=== PATIENT | female | born 1965 | race Caucasian/White ===

== ENCOUNTER 2017-01-24 08:43 | Day surgery (SDC) | payer OTHER ==
[~2017-01-24] VITALS: Ht 157.5 cm; Wt 103.2 kg
[~2017-01-24 08:43] MED LIST: ASPI81 PO; ENAL5 PO; HYDR25TA PO; ISOS10TA16 PO; METO25 PO; OMEP20 PO; SIMV-260 PO; SULF500P17
[2017-01-24] MEDS ORDERED: 0.9% SODIUM CHLORIDE 10 ML SYRINGE IVP ONE (09:07)
[2017-01-24 09:45] LABS: ANION GAP 10 mmol/L (8-16); CALCIUM, TOTAL 9.2 mg/dL (8.8-10.5); CARBON DIOXIDE 26 mmol/L (22-29); CHLORIDE 102 mmol/L (98-107); CREATININE 0.87 mg/dL (0.60-1.30); GLOMERULAR FILTR. RATE CALC > 60 mL/min (>60); POTASSIUM 3.9 mmol/L (3.5-5.1); SODIUM SERUM 138 mmol/L (136-145); UREA NITROGEN, BLOOD 13 mg/dL (7-18)
[2017-01-24] MEDS ORDERED: 0.9% SODIUM CHLORIDE 10 ML SYRINGE IVP PRN (09:45)
[2017-01-24] MEDS ORDERED: ALBU8.5H IH (09:50)
[2017-01-24] MEDS ORDERED: IBUP-1547 PO (09:50)
[2017-01-24] MEDS ORDERED: BACI1POW2 TP (09:50)
[2017-01-24] MEDS ORDERED: BECL8.7A5 PO (09:51)
[2017-01-24] MEDS ORDERED: MONT10TA21 PO (09:51)
[2017-01-24] MEDS ORDERED: METOPROLOL TARTRATE 50 MG TABLET PO ONE (10:30)
[2017-01-24] MEDS ORDERED: METOPROLOL TARTRATE 5 MG/5 ML VIAL ONE (10:32)
[2017-01-24] MEDS ORDERED: NITROGLYCERIN 400 MCG/SUBLINGUAL SPRAY 4.9 GM BOTTLE SL ONE (10:32)
[2017-01-24] MEDS ORDERED: IOVERSOL 350 MG/ML 150 ML VIAL ONE (10:33)
[2017-01-24] MEDS ORDERED: SODIUM CHLORIDE 0.9% 100 ML ONE (10:33)
== END 2017-01-24 11:50 | disposition home or self-care (01) ==
LOC: SDS 08:43 → EDSTATUS 11:00 → SDS 11:50
PROVIDERS: ATTEND Internal Medicine Cardiovascular Disease
DX: I20.9 Angina pectoris, unspecified (principal); M19.90 Unspecified osteoarthritis, unspecified site; Z88.0 Allergy status to penicillin; Z87.891 Personal history of nicotine dependence; Z98.890 Other specified postprocedural states; Z90.710 Acquired absence of both cervix and uterus; Z98.51 Tubal ligation status; Z88.6 Allergy status to analgesic agent; Z79.82 Long term (current) use of aspirin; Z85.44 Personal history of malignant neoplasm of other female genital organs
CPT/HCPCS: 36415; 75574; 80048; 93005; J7050; Q9967; J3490

== ENCOUNTER 2025-04-11 13:08 | Emergency (ER) | payer OTHER ==
[~2025-04-11] VITALS: Ht 157.5 cm; Wt 106.4 kg
[~2025-04-11 13:08] MED LIST changes: +ALBU8.5H8 IH; +ASPI-1450 PO; -ASPI81 PO; +BACI1POW2 TP; +BECL8.7A7 PO; +ENAL-124 PO; -ENAL5 PO; -HYDR25TA PO; +HYDR25TA2 PO; +IBUP-1493 PO; +MONT-35 PO; +OMEP-148 PO; -OMEP20 PO
[2025-04-11 13:24] VITALS: BP 122/79; PULSE 94; RESP 18; TEMP 98.2; O2SAT 99
[2025-04-11 14:10] LABS: COVID AG,FIA SOURCE NASAL SWAB
[2025-04-11 14:11] LABS: PLATELET COUNT (AUTO) 246 K/uL (150-450); RED BLOOD CELL COUNT(AUTO) 4.64 MIL/uL (4.00-5.20); RED CELL DISTRIBUTION WIDTH 13.6 % (11.5-14.5); WHITE BLOOD COUNT (AUTO) 7.2 K/uL (4.5-11.0)
[2025-04-11 14:12] LABS: APPEARANCE,URINE CLEAR (CLEAR); GLUCOSE, URINE (UA) NEGATIVE (NEGATIVE); LEUKOCYTE ESTERASE ,URINE TRACE (NEGATIVE); NITRATE,URINE NEGATIVE (NEGATIVE); OCCULT BLOOD,URINE NEGATIVE (NEGATIVE); SPECIFIC GRAVITIY, URINE 1.021 (1.003-1.030)
[2025-04-11 14:16] LABS: SQUAMOUS EPITHELIAL CELL,UR Few /LPF (None Seen)
[2025-04-11 14:21] LABS: CALCIUM, TOTAL 8.9 mg/dL (8.8-10.5); CREATININE 0.73 mg/dL (0.60-1.30); GLOMERULAR FILTR. RATE CALC > 60 mL/min (>60); GLUCOSE,RANDOM 98 mg/dL (70-110); SODIUM SERUM 143 mmol/L (136-145); UREA NITROGEN, BLOOD 13 mg/dL (7-18)
[2025-04-11 14:32] LABS: ASPARTATE AMINOTRANSFERASE 23.0 U/L (15-37); TOTAL PROTEIN, SERUM 7.6 g/dL (6.4-8.2)
[2025-04-11 14:51] LABS: SARS-COV2 (COVID) ANTIGEN,FIA Negative (Negative)
[2025-04-11 14:55] LABS: INFLUENZA TYPE A NEGATIVE FOR TYPE A (NEGATIVE); INFLUENZA TYPE B NEGATIVE FOR TYPE B (NEGATIVE)
[2025-04-11] MEDS ORDERED: CIPR-515 PO (15:44)
== END 2025-04-11 16:14 | disposition home or self-care (01) ==
LOC: EMS 13:08
DX: A08.8 Other specified intestinal infections (principal); J45.909 Unspecified asthma, uncomplicated; Z79.51 Long term (current) use of inhaled steroids; Z79.82 Long term (current) use of aspirin; Z79.899 Other long term (current) drug therapy; Z88.0 Allergy status to penicillin; Z90.89 Acquired absence of other organs; Z95.5 Presence of coronary angioplasty implant and graft; Z98.51 Tubal ligation status; Z20.822 Contact with and (suspected) exposure to COVID-19
CPT/HCPCS: 80048; 80076; 81001; 85025; 87077; 87086; 87186; 87804; 99283